=== PATIENT | male | born 1950 | race Caucasian/White ===

== ENCOUNTER 2020-11-22 01:24 | Inpatient (IN) ==
[2020-11-22] MEDS ORDERED: Albuterol 2.5 MG/3 ML NEBULIZER IH PRN (03:51)
[2020-11-22] MEDS ORDERED: methylPREDNISolone 125 MG/2 ML VIAL IVP ONE (03:51)
[2020-11-22] MEDS ORDERED: Perflutren Lipid Microsphere 1.3 ML in 0.9 % Sodium Chloride 8.7 ML IVP PRN (03:55)
[2020-11-22] MEDS: Azithromycin 250 MG TABLET PO SCH ×2 (04:10→09:39)
[2020-11-22] MEDS: Albuterol 2.5 MG/3 ML NEBULIZER IH SCH ×6 (04:11→23:32)
[2020-11-22] MEDS ORDERED: *HR* Dextrose 50 % in Water (Vial) 50 ML VIAL IVP PRN (04:40)
[2020-11-22] MEDS ORDERED: D5% in Water 1,000 ML IVC PRN (04:40)
[2020-11-22] MEDS ORDERED: Dextrose Gel 15 GM/37.5 ML TUBE PO PRN ×2 (04:40)
[2020-11-22 06:38] LABS: Prothrombin Time 12.1 Seconds (9.4-12.1)
[2020-11-22 06:59] LABS: Alanine Aminotransferase 12 Units/L (7-52); Albumin 3.6 g/dL (3.5-5.7); Albumin/Globulin Ratio 1.6 (1.1-2.2); Alkaline Phosphatase 78 Units/L (34-104); Aspartate Amino Transferase 13 Units/L (13-39); BUN/Creatinine Ratio 14 (6-26); Bilirubin,Total 0.6 mg/dL (0.3-1.0); Blood Urea Nitrogen 18 mg/dL (8-23); Calcium 8.6 mg/dL (8.6-10.3); Carbon Dioxide 24 mEq/L (23-29); Chloride 108 mEq/L (98-107); Chol/HDL Ratio 2.7 (0-4.9); Cholesterol 108 mg/dL (< 200); Globulin 2.2 g/dL (2.4-3.5); Glucose 109 mg/dL (70-105); HDL Cholesterol 40 mg/dL (40-59); LDL Cholesterol,Calculated 61 mg/dL (< 100); Osmolality,Calculated 288 (280-300); Potassium 4.7 mEq/L (3.5-5.1); Sodium 138 mEq/L (136-145); Total Protein 5.8 g/dL (6.4-8.9); Triglycerides 36 mg/dL (< 150); Troponin I 0.29 ng/mL (< 0.04); eGFR For African Americans > 60 (> 60); eGFR For Non-African Americans 56 (> 60)
[2020-11-22] MEDS ORDERED: Isovue-370 500 ML BOTTLE IVP ONE (07:05)
[2020-11-22 07:08] LABS: Bilirubin,Urine Negative (Negative); Blood,Urine Negative (Negative); Clarity,Urine Clear (Clear); Color,Urine Colorless (Yellow); Glucose,Urine (UA) Normal (Normal); Ketones,Urine Negative (Negative); Leukocyte Esterase,Urine Negative (Negative); Nitrite,Urine Negative (Negative); Protein,Urine Negative (Neg-Trace); Specific Gravity,Urine 1.008 (1.010-1.025); Urobilinogen,Urine Normal (Normal)
[2020-11-22] MEDS ORDERED: *HR* Heparin 5,000 UNIT/ML VIAL IVP PRN ×2 (07:08)
[2020-11-22] MEDS ORDERED: *HR* Heparin 5,000 UNIT/ML VIAL IVP ONE (07:08)
[2020-11-22] MEDS: Insulin LISPRO 300 UNITS/3 ML VIAL SUBQ SCH ×4 (07:52→20:34)
[2020-11-22 08:54] LABS: ABG Base Excess -1 mEq/L (-2 to 3); ABG HCO3 24 mEq/L (21-27); ABG Oxygen Saturation 98 % (95-98); ABG PCO2 38 mmHg (35-45); ABG PO2 98 mmHg (85-104); ABG TCO2 25 mEq/L (20-26)
[2020-11-22 09:10] LABS: Estimated Average Glucose 117 mg/dl; Hemoglobin A1C 5.7 %
[2020-11-22] MEDS: Aspirin 81 MG TAB.CHEW PO SCH (09:39)
[2020-11-22 10:21] LABS: Hematocrit 39.2 % (37.5-50.1); Hemoglobin 12.9 g/dL (12.9-16.9); Mean Corpuscular HGB Conc 32.9 g/dL (31.6-35.5); Mean Corpuscular Hemoglobin 31.4 pg (28.0-33.3); Mean Corpuscular Volume 95.4 fL (83.0-100.0); Mean Platelet Volume 10.2 fL (9.4-12.4); Platelet Count 229 K/mcL (140-400); Red Blood Count 4.11 M/mcL (4.19-5.50); Red Cell Distribution Width 11.6 % (11.5-14.5); White Blood Count 8.9 K/mcL (4.3-11.1)
[2020-11-22 10:27] LABS: Heparin anti-factor XA UFH 0.05 IU/mL (0.30-0.70)
[2020-11-22 10:28] LABS: Prothrombin Time 11.3 Seconds (9.4-12.1)
[2020-11-22] MEDS: Heparin 25,000UNIT/250ML 1/2NS 25,000 UNIT/250 ML IV.SOLN IVC SCH (11:04)
[2020-11-22] MEDS: 0.9 % Sodium Chloride 1,000 ML IVC SCH (14:21)
[2020-11-23] MEDS: 0.9 % Sodium Chloride 1,000 ML IVC SCH (00:06)
[2020-11-23 01:32] LABS: Basophils % 0.1 %; Eosinophils % 0.1 %; Hematocrit 34.7 % (37.5-50.1); Hemoglobin 11.5 g/dL (12.9-16.9); Immature Granulocytes % 0.6 % (0-4); Lymphocytes # 1.4 K/mcL (0.6-4.6); Lymphocytes % 9.2 %; Mean Corpuscular HGB Conc 33.1 g/dL (31.6-35.5); Mean Corpuscular Hemoglobin 31.6 pg (28.0-33.3); Mean Corpuscular Volume 95.3 fL (83.0-100.0); Mean Platelet Volume 10.4 fL (9.4-12.4); Monocytes # 1.2 K/mcL (0.0-1.3); Monocytes % 7.7 %; Neutrophils # 12.8 K/mcL (1.6-8.9); Platelet Count 192 K/mcL (140-400); Red Blood Count 3.64 M/mcL (4.19-5.50); Red Cell Distribution Width 11.5 % (11.5-14.5); Segmented Neutrophils % 82.3 %
[2020-11-23 01:34] LABS: White Blood Count 15.5 K/mcL (4.3-11.1)
[2020-11-23] MEDS: Albuterol 2.5 MG/3 ML NEBULIZER IH SCH ×6 (03:49→23:09)
[2020-11-23] MEDS: Insulin LISPRO 300 UNITS/3 ML VIAL SUBQ SCH ×4 (08:37→21:08)
[2020-11-23] MEDS: predniSONE 20 MG TABLET PO SCH (08:38)
[2020-11-23] MEDS: Azithromycin 250 MG TABLET PO SCH (08:38)
[2020-11-23] MEDS: Aspirin 81 MG TAB.CHEW PO SCH (08:38)
[2020-11-23] MEDS: Nicotine 21 MG PATCH.TD24 TD SCH (11:17)
[2020-11-23] MEDS: Heparin 25,000UNIT/250ML 1/2NS 25,000 UNIT/250 ML IV.SOLN IVC SCH (16:03)
[2020-11-23] MEDS: carvediloL 6.25 MG TABLET PO SCH (16:15)
[2020-11-23] MEDS: amLODIPine 5 MG TABLET PO SCH (16:15)
[2020-11-23] MEDS: Budesonide/Formoterol 160/4.5 1 PUFF INH IH SCH (19:48)
[2020-11-24 02:38] LABS: Basophils % 0.3 %; Eosinophils # 0.2 K/mcL (0.0-0.6); Eosinophils % 1.2 %; Hematocrit 37.2 % (37.5-50.1); Immature Granulocytes % 0.3 % (0-4); Lymphocytes # 3.2 K/mcL (0.6-4.6); Lymphocytes % 22.4 %; Mean Corpuscular HGB Conc 34.9 g/dL (31.6-35.5); Mean Corpuscular Hemoglobin 32.7 pg (28.0-33.3); Mean Corpuscular Volume 93.5 fL (83.0-100.0); Mean Platelet Volume 10.3 fL (9.4-12.4); Monocytes % 6.9 %; Neutrophils # 9.9 K/mcL (1.6-8.9); Platelet Count 229 K/mcL (140-400); Red Blood Count 3.98 M/mcL (4.19-5.50); Red Cell Distribution Width 11.6 % (11.5-14.5); Segmented Neutrophils % 68.9 %; White Blood Count 14.4 K/mcL (4.3-11.1)
[2020-11-24 02:57] LABS: BUN/Creatinine Ratio 19 (6-26); Blood Urea Nitrogen 26 mg/dL (8-23); Carbon Dioxide 26 mEq/L (23-29); Chloride 106 mEq/L (98-107); Glucose 101 mg/dL (70-105); Magnesium 1.5 mg/dL (1.6-2.6); Osmolality,Calculated 291 (280-300); Phosphorous 2.3 mg/dL (2.7-4.5); Potassium 3.7 mEq/L (3.5-5.1); Sodium 138 mEq/L (136-145); eGFR For African Americans > 60 (> 60); eGFR For Non-African Americans 52 (> 60)
[2020-11-24] MEDS: Albuterol 2.5 MG/3 ML NEBULIZER IH SCH ×6 (03:52→23:16)
[2020-11-24] MEDS: Acetaminophen 325 MG TABLET PO PRN (06:04)
[2020-11-24] MEDS: Budesonide/Formoterol 160/4.5 1 PUFF INH IH SCH ×2 (07:29→20:08)
[2020-11-24] MEDS: Insulin LISPRO 300 UNITS/3 ML VIAL SUBQ SCH ×4 (08:14→20:03)
[2020-11-24] MEDS: amLODIPine 5 MG TABLET PO SCH (08:26)
[2020-11-24] MEDS: Azithromycin 250 MG TABLET PO SCH (08:27)
[2020-11-24] MEDS: Nicotine 21 MG PATCH.TD24 TD SCH (08:27)
[2020-11-24] MEDS: predniSONE 20 MG TABLET PO SCH (08:28)
[2020-11-24] MEDS: carvediloL 6.25 MG TABLET PO SCH ×2 (08:28→17:19)
[2020-11-24] MEDS: Aspirin 81 MG TAB.CHEW PO SCH (08:28)
[2020-11-24] MEDS: Heparin 25,000UNIT/250ML 1/2NS 25,000 UNIT/250 ML IV.SOLN IVC SCH ×2 (08:36→20:28)
[2020-11-25] MEDS: Albuterol 2.5 MG/3 ML NEBULIZER IH SCH ×6 (03:21→23:03)
[2020-11-25 03:49] LABS: Basophils % 0.3 %; Eosinophils # 0.1 K/mcL (0.0-0.6); Eosinophils % 0.4 %; Hemoglobin 13.1 g/dL (12.9-16.9); Immature Granulocytes % 0.4 % (0-4); Lymphocytes # 2.9 K/mcL (0.6-4.6); Lymphocytes % 18.3 %; Mean Corpuscular HGB Conc 35.4 g/dL (31.6-35.5); Mean Corpuscular Hemoglobin 32.3 pg (28.0-33.3); Mean Corpuscular Volume 91.4 fL (83.0-100.0); Mean Platelet Volume 10.7 fL (9.4-12.4); Monocytes # 0.9 K/mcL (0.0-1.3); Monocytes % 5.8 %; Neutrophils # 11.8 K/mcL (1.6-8.9); Platelet Count 246 K/mcL (140-400); Red Blood Count 4.05 M/mcL (4.19-5.50); Red Cell Distribution Width 11.4 % (11.5-14.5); Segmented Neutrophils % 74.8 %; White Blood Count 15.7 K/mcL (4.3-11.1)
[2020-11-25 03:59] LABS: BUN/Creatinine Ratio 15 (6-26); Blood Urea Nitrogen 20 mg/dL (8-23); Carbon Dioxide 25 mEq/L (23-29); Chloride 108 mEq/L (98-107); Glucose 108 mg/dL (70-105); Magnesium 1.6 mg/dL (1.6-2.6); Osmolality,Calculated 289 (280-300); Potassium 3.7 mEq/L (3.5-5.1); Sodium 138 mEq/L (136-145); eGFR For African Americans > 60 (> 60); eGFR For Non-African Americans 52 (> 60)
[2020-11-25] MEDS: Budesonide/Formoterol 160/4.5 1 PUFF INH IH SCH ×2 (07:14→19:36)
[2020-11-25] MEDS: Insulin LISPRO 300 UNITS/3 ML VIAL SUBQ SCH ×4 (07:15→21:49)
[2020-11-25] MEDS: Nicotine 21 MG PATCH.TD24 TD SCH (08:45)
[2020-11-25] MEDS: carvediloL 6.25 MG TABLET PO SCH ×2 (08:45→17:45)
[2020-11-25] MEDS: Aspirin 81 MG TAB.CHEW PO SCH (08:46)
[2020-11-25] MEDS: amLODIPine 5 MG TABLET PO SCH (08:46)
[2020-11-25] MEDS: predniSONE 20 MG TABLET PO SCH (08:46)
[2020-11-25] MEDS: Azithromycin 250 MG TABLET PO SCH (08:46)
[2020-11-25] MEDS: lisinopriL 20 MG TABLET PO SCH (08:46)
[2020-11-25] MEDS: Acetaminophen 325 MG TABLET PO PRN (08:50)
[2020-11-25] MEDS ORDERED: 0.9 % Sodium Chloride 1,000 ML IVC SCH (10:15)
[2020-11-25] MEDS ORDERED: E-Z-HD (BARIUM SULF) SUSPENSION PO ONE (14:39)
[2020-11-25] MEDS ORDERED: E-Z-PAQUE (BARIUM SULF) SUSP 1 BOTTLE PO ONE (14:39)
[2020-11-25] MEDS ORDERED: Barium Sulfate 1 TAB TABLET PO ONE (14:40)
[2020-11-26] MEDS: Heparin 25,000UNIT/250ML 1/2NS 25,000 UNIT/250 ML IV.SOLN IVC SCH ×2 (00:16→17:24)
[2020-11-26] MEDS: Acetaminophen 325 MG TABLET PO PRN (02:20)
[2020-11-26 03:41] LABS: Basophils # 0.1 K/mcL (0.0-0.2); Basophils % 0.3 %; Eosinophils # 0.1 K/mcL (0.0-0.6); Eosinophils % 0.5 %; Hematocrit 36.4 % (37.5-50.1); Hemoglobin 12.3 g/dL (12.9-16.9); Immature Granulocytes % 0.4 % (0-4); Lymphocytes # 3.1 K/mcL (0.6-4.6); Lymphocytes % 20.9 %; Mean Corpuscular HGB Conc 33.8 g/dL (31.6-35.5); Mean Corpuscular Hemoglobin 31.5 pg (28.0-33.3); Mean Corpuscular Volume 93.1 fL (83.0-100.0); Mean Platelet Volume 10.8 fL (9.4-12.4); Monocytes # 0.9 K/mcL (0.0-1.3); Monocytes % 6.3 %; Neutrophils # 10.5 K/mcL (1.6-8.9); Platelet Count 231 K/mcL (140-400); Red Blood Count 3.91 M/mcL (4.19-5.50); Red Cell Distribution Width 11.5 % (11.5-14.5); Segmented Neutrophils % 71.6 %; White Blood Count 14.7 K/mcL (4.3-11.1)
[2020-11-26 04:03] LABS: BUN/Creatinine Ratio 16 (6-26); Blood Urea Nitrogen 22 mg/dL (8-23); Carbon Dioxide 23 mEq/L (23-29); Chloride 107 mEq/L (98-107); Glucose 93 mg/dL (70-105); Magnesium 1.5 mg/dL (1.6-2.6); Osmolality,Calculated 289 (280-300); Phosphorous 3.5 mg/dL (2.7-4.5); Potassium 3.8 mEq/L (3.5-5.1); Sodium 138 mEq/L (136-145); eGFR For African Americans > 60 (> 60); eGFR For Non-African Americans 51 (> 60)
[2020-11-26] MEDS: Albuterol 2.5 MG/3 ML NEBULIZER IH SCH ×5 (04:22→20:19)
[2020-11-26] MEDS: Budesonide/Formoterol 160/4.5 1 PUFF INH IH SCH ×2 (07:11→20:19)
[2020-11-26] MEDS: amLODIPine 5 MG TABLET PO SCH (08:38)
[2020-11-26] MEDS: lisinopriL 20 MG TABLET PO SCH (08:38)
[2020-11-26] MEDS: Azithromycin 250 MG TABLET PO SCH (08:38)
[2020-11-26] MEDS: predniSONE 20 MG TABLET PO SCH (08:38)
[2020-11-26] MEDS: carvediloL 6.25 MG TABLET PO SCH ×2 (08:39→17:23)
[2020-11-26] MEDS: Nicotine 21 MG PATCH.TD24 TD SCH (08:39)
[2020-11-26] MEDS: Aspirin 81 MG TAB.CHEW PO SCH (08:39)
[2020-11-26] MEDS: Insulin LISPRO 300 UNITS/3 ML VIAL SUBQ SCH ×4 (08:41→19:56)
[2020-11-26] MEDS ORDERED: 0.9 % Sodium Chloride 1,000 ML IVC SCH (11:00)
[2020-11-26] MEDS ORDERED: Nitroglycerin 1,000 MCG/5 ML VIAL IV ONE (14:14)
[2020-11-26] MEDS ORDERED: *HR* Heparin 10,000 UNIT/10 ML VIAL ONE (14:14)
[2020-11-26] MEDS ORDERED: 0.9 % Sodium Chloride 2,000 ML ONE (14:14)
[2020-11-26] MEDS ORDERED: ISOVUE-370 200 ML INFUS..BTL ONE (14:14)
[2020-11-26] MEDS ORDERED: Heparin 1,000 UNITS/500 mL 500 ML ONE (14:14)
[2020-11-26] MEDS ORDERED: *HR* FentaNYL (PF) 100 MCG/2 ML VIAL ONE (14:27)
[2020-11-26] MEDS ORDERED: *HR* Midazolam HCl 2 MG/2 ML VIAL ONE (14:27)
[2020-11-26] MEDS ORDERED: *HR* Heparin 5,000 UNIT/ML VIAL IVP PRN ×2 (16:56)
[2020-11-27] MEDS: Albuterol 2.5 MG/3 ML NEBULIZER IH SCH ×7 (00:13→23:55)
[2020-11-27 00:48] LABS: Basophils % 0.3 %; Eosinophils # 0.1 K/mcL (0.0-0.6); Eosinophils % 0.4 %; Hemoglobin 13.2 g/dL (12.9-16.9); Immature Granulocytes % 0.4 % (0-4); Lymphocytes # 2.3 K/mcL (0.6-4.6); Lymphocytes % 15.3 %; Mean Corpuscular HGB Conc 34.7 g/dL (31.6-35.5); Mean Corpuscular Hemoglobin 32.4 pg (28.0-33.3); Mean Corpuscular Volume 93.4 fL (83.0-100.0); Mean Platelet Volume 10.7 fL (9.4-12.4); Monocytes % 6.7 %; Neutrophils # 11.8 K/mcL (1.6-8.9); Platelet Count 251 K/mcL (140-400); Red Blood Count 4.07 M/mcL (4.19-5.50); Red Cell Distribution Width 11.7 % (11.5-14.5); Segmented Neutrophils % 76.9 %; White Blood Count 15.3 K/mcL (4.3-11.1)
[2020-11-27 01:06] LABS: Calcium 9.1 mg/dL (8.6-10.3); Magnesium 1.9 mg/dL (1.6-2.6); Phosphorous 3.4 mg/dL (2.7-4.5); Potassium 4.4 mEq/L (3.5-5.1)
[2020-11-27] MEDS: Budesonide/Formoterol 160/4.5 1 PUFF INH IH SCH ×2 (07:06→19:40)
[2020-11-27] MEDS: Azithromycin 250 MG TABLET PO SCH (09:12)
[2020-11-27] MEDS: carvediloL 6.25 MG TABLET PO SCH ×2 (09:15→16:14)
[2020-11-27] MEDS: amLODIPine 5 MG TABLET PO SCH (09:15)
[2020-11-27] MEDS: predniSONE 20 MG TABLET PO SCH (09:15)
[2020-11-27] MEDS: Nicotine 21 MG PATCH.TD24 TD SCH (09:16)
[2020-11-27] MEDS: 0.9 % Sodium Chloride 1,000 ML IVC SCH ×2 (09:17→22:29)
[2020-11-27] MEDS: Aspirin 81 MG TAB.CHEW PO SCH (09:39)
[2020-11-27] MEDS: Insulin LISPRO 300 UNITS/3 ML VIAL SUBQ SCH ×4 (09:40→20:07)
[2020-11-27] MEDS ORDERED: carvediloL 6.25 MG TABLET PO ONE (10:37)
[2020-11-27] MEDS: Acetaminophen 325 MG TABLET PO PRN (13:59)
[2020-11-27] MEDS: Heparin 25,000UNIT/250ML 1/2NS 25,000 UNIT/250 ML IV.SOLN IVC SCH (21:45)
[2020-11-28 01:14] LABS: Basophils % 0.2 %; Eosinophils % 0.1 %; Hematocrit 36.8 % (37.5-50.1); Hemoglobin 12.3 g/dL (12.9-16.9); Immature Granulocytes % 0.5 % (0-4); Lymphocytes # 2.2 K/mcL (0.6-4.6); Lymphocytes % 13.1 %; Mean Corpuscular HGB Conc 33.4 g/dL (31.6-35.5); Mean Corpuscular Hemoglobin 31.5 pg (28.0-33.3); Mean Corpuscular Volume 94.4 fL (83.0-100.0); Mean Platelet Volume 11.2 fL (9.4-12.4); Monocytes % 6.1 %; Neutrophils # 13.6 K/mcL (1.6-8.9); Platelet Count 238 K/mcL (140-400); Red Cell Distribution Width 11.7 % (11.5-14.5)
[2020-11-28 01:32] LABS: BUN/Creatinine Ratio 16 (6-26); Blood Urea Nitrogen 22 mg/dL (8-23); Calcium 8.5 mg/dL (8.6-10.3); Carbon Dioxide 20 mEq/L (23-29); Chloride 107 mEq/L (98-107); Glucose 140 mg/dL (70-105); Magnesium 1.5 mg/dL (1.6-2.6); Osmolality,Calculated 286 (280-300); Phosphorous 2.9 mg/dL (2.7-4.5); Potassium 4.2 mEq/L (3.5-5.1); Sodium 135 mEq/L (136-145); eGFR For African Americans > 60 (> 60); eGFR For Non-African Americans 50 (> 60)
[2020-11-28] MEDS: Albuterol 2.5 MG/3 ML NEBULIZER IH SCH ×5 (04:10→20:24)
[2020-11-28] MEDS: Insulin LISPRO 300 UNITS/3 ML VIAL SUBQ SCH ×4 (07:06→21:19)
[2020-11-28] MEDS: Aspirin 81 MG TAB.CHEW PO SCH (07:07)
[2020-11-28] MEDS: Budesonide/Formoterol 160/4.5 1 PUFF INH IH SCH ×3 (07:17→21:53)
[2020-11-28] MEDS: Nicotine 21 MG PATCH.TD24 TD SCH (07:37)
[2020-11-28] MEDS: amLODIPine 5 MG TABLET PO SCH (07:37)
[2020-11-28] MEDS: carvediloL 6.25 MG TABLET PO SCH (07:37)
[2020-11-28] MEDS ORDERED: Lidocaine -MPF 2% 2 ML VIAL ONE ×3 (11:46→15:02)
[2020-11-28] MEDS ORDERED: Heparin 1,000 UNITS/500 mL 500 ML ONE (11:46)
[2020-11-28] MEDS ORDERED: *HR* Rocuronium Bromide 50 MG/5 ML VIAL ONE ×2 (12:14→14:18)
[2020-11-28] MEDS ORDERED: *HR* Succinylcholine 200 MG/10 ML VIAL IVP ONE (12:14)
[2020-11-28] MEDS ORDERED: Ondansetron 4 MG/2 ML VIAL ONE (12:14)
[2020-11-28] MEDS ORDERED: Lidocaine HCL 4 ML Topical Solution (Laryng-O-Jet Kit Sterile Pak) TP ONE (12:14)
[2020-11-28] MEDS ORDERED: *HR* FentaNYL (PF) 100 MCG/2 ML VIAL ONE (12:15)
[2020-11-28] MEDS ORDERED: *HR* Propofol 200 MG/20 ML VIAL IVP ONE (12:15)
[2020-11-28] MEDS ORDERED: *HR* Labetalol 20 MG/4 ML SYRINGE IVP ONE (12:59)
[2020-11-28] MEDS ORDERED: Heparin 1,000 UNITS/500 mL 0 ML ONE (13:10)
[2020-11-28] MEDS ORDERED: Protamine Sulfate 50 MG/5 ML VIAL IVP ONE (13:10)
[2020-11-28] MEDS ORDERED: Lidocaine 1% 20 ML MDV ONE (13:10)
[2020-11-28] MEDS ORDERED: Bupivacaine-MPF 0.25% 10 ML VIAL ONE (13:10)
[2020-11-28] MEDS ORDERED: *HR* Heparin 5,000 UNIT/ML VIAL ONE (13:12)
[2020-11-28] MEDS ORDERED: Vancomycin 1,000 MG, Sodium Chloride IRRigation 1,000 ML IR ONE (13:30)
[2020-11-28] MEDS ORDERED: Vancomycin 1,000 MG, Sodium Chloride IRRIG Soln 3,000 ML IR ONE (13:30)
[2020-11-28] MEDS ORDERED: EPINEPHrine 1 MG/ML VIAL ONE (13:52)
[2020-11-28] MEDS ORDERED: Vancomycin 1,000 MG VIAL ONE (14:13)
[2020-11-28] MEDS ORDERED: *HR* HYDROMORPHONE 2 MG/ML VIAL ONE (15:02)
[2020-11-28] MEDS ORDERED: Ipratropium/Albuterol Neb 3 ML IH ONE (17:33)
[2020-11-28] MEDS ORDERED: Acetaminophen IV 1,000 MG/100 ML BAG IVPB ONE ×2 (17:35→17:37)
[2020-11-28] MEDS ORDERED: *HR* Atropine Sulfate 1 MG/10 ML SYRINGE ONE (19:03)
[2020-11-28] MEDS ORDERED: Glycopyrrolate 0.2 MG/ML VIAL IVP ONE (19:07)
[2020-11-28] MEDS ORDERED: Glycopyrrolate 0.2 MG/ML VIAL ONE (19:07)
[2020-11-28] MEDS ORDERED: Nicotine 21 MG PATCH.TD24 TD STA (19:16)
[2020-11-28] MEDS ORDERED: Naloxone 0.4 MG/ML INJ IVP PRN (20:44)
[2020-11-28] MEDS ORDERED: Dextrose Gel 15 GM/37.5 ML TUBE PO PRN ×2 (20:44)
[2020-11-28] MEDS ORDERED: Albuterol 2.5 MG/3 ML NEBULIZER IH PRN (20:44)
[2020-11-28] MEDS ORDERED: *HR* Labetalol 20 MG/4 ML SYRINGE IVP PRN (20:44)
[2020-11-28] MEDS ORDERED: *HR* OxyCODONE Immed Rel 5 MG TABLET PO PRN (20:44)
[2020-11-28] MEDS ORDERED: Ondansetron 4 MG/2 ML VIAL IVP PRN (20:44)
[2020-11-28] MEDS ORDERED: *HR* Dextrose 50 % in Water (Vial) 50 ML VIAL IVP PRN (20:44)
[2020-11-28] MEDS ORDERED: D5% in Water 1,000 ML IVC PRN (20:44)
[2020-11-28] MEDS ORDERED: 0.9 % Sodium Chloride 1,000 ML IVC SCH ×2 (20:44)
[2020-11-28] MEDS: CeFAZolin 2 GM/120 ML BAG IVPB SCH (21:48)
[2020-11-29] MEDS: Albuterol 2.5 MG/3 ML NEBULIZER IH SCH ×6 (00:04→19:59)
[2020-11-29] MEDS: Acetaminophen 325 MG TABLET PO PRN ×2 (00:46→10:48)
[2020-11-29 00:54] LABS: Basophils % 0.1 %; Hematocrit 33.3 % (37.5-50.1); Hemoglobin 11.3 g/dL (12.9-16.9); Immature Granulocytes % 0.4 % (0-4); Mean Corpuscular HGB Conc 33.9 g/dL (31.6-35.5); Mean Corpuscular Hemoglobin 32.6 pg (28.0-33.3); Mean Platelet Volume 11.2 fL (9.4-12.4); Monocytes # 0.6 K/mcL (0.0-1.3); Neutrophils # 12.3 K/mcL (1.6-8.9); Platelet Count 184 K/mcL (140-400); Red Blood Count 3.47 M/mcL (4.19-5.50); Red Cell Distribution Width 11.9 % (11.5-14.5); Segmented Neutrophils % 88.5 %; White Blood Count 13.9 K/mcL (4.3-11.1)
[2020-11-29 01:09] LABS: Calcium 8.3 mg/dL (8.6-10.3); Magnesium 1.7 mg/dL (1.6-2.6); Potassium 4.6 mEq/L (3.5-5.1)
[2020-11-29] MEDS: CeFAZolin 2 GM/120 ML BAG IVPB SCH (06:25)
[2020-11-29] MEDS: *HR* Heparin 5,000 UNIT/ML VIAL SQ SCH ×2 (06:26→16:21)
[2020-11-29] MEDS: Budesonide/Formoterol 160/4.5 1 PUFF INH IH SCH ×2 (07:39→20:01)
[2020-11-29] MEDS: *HR* Metoprolol 5 MG/5 ML VIAL IVP SCH ×3 (07:42→16:21)
[2020-11-29] MEDS: Insulin LISPRO 300 UNITS/3 ML VIAL SUBQ SCH ×4 (07:43→19:36)
[2020-11-29] MEDS: Aspirin 81 MG TAB.CHEW PO SCH (07:46)
[2020-11-29] MEDS: Nicotine 21 MG PATCH.TD24 TD SCH (07:46)
[2020-11-29] MEDS ORDERED: amLODIPine 5 MG TABLET PO SCH (09:00)
[2020-11-29] MEDS ORDERED: lisinopriL 20 MG TABLET PO SCH (09:00)
[2020-11-29] MEDS ORDERED: 0.9 % Sodium Chloride 1,000 ML IVC ONE (10:37)
[2020-11-29] MEDS ORDERED: 0.9 % Sodium Chloride 1,000 ML IVC SCH (12:00)
[2020-11-29] MEDS ORDERED: 0.9 % Sodium Chloride 500 ML IVC ONE ×2 (12:03→13:35)
[2020-11-29 13:21] LABS: Hematocrit 31.8 % (37.5-50.1); Hemoglobin 10.5 g/dL (12.9-16.9)
[2020-11-29] MEDS: 0.9 % Sodium Chloride 1,000 ML IVC SCH ×2 (14:15→19:46)
[2020-11-29] MEDS ORDERED: carvediloL 6.25 MG TABLET PO SCH (17:00)
[2020-11-30] MEDS: *HR* Metoprolol 5 MG/5 ML VIAL IVP SCH ×4 (00:09→17:28)
[2020-11-30] MEDS: Albuterol 2.5 MG/3 ML NEBULIZER IH SCH ×7 (00:14→23:15)
[2020-11-30] MEDS: Acetaminophen 325 MG TABLET PO PRN ×2 (02:09→13:16)
[2020-11-30] MEDS: 0.9 % Sodium Chloride 1,000 ML IVC SCH (04:08)
[2020-11-30] MEDS: *HR* Heparin 5,000 UNIT/ML VIAL SQ SCH ×2 (06:14→18:16)
[2020-11-30] MEDS: Insulin LISPRO 300 UNITS/3 ML VIAL SUBQ SCH ×4 (07:38→21:45)
[2020-11-30] MEDS: Nicotine 21 MG PATCH.TD24 TD SCH (08:06)
[2020-11-30] MEDS: Aspirin 81 MG TAB.CHEW PO SCH ×2 (08:07→10:43)
[2020-11-30] MEDS: Budesonide/Formoterol 160/4.5 1 PUFF INH IH SCH ×2 (08:37→19:37)
[2020-11-30 09:42] LABS: Basophils % 0.2 %; Eosinophils # 0.1 K/mcL (0.0-0.6); Eosinophils % 0.9 %; Hematocrit 31.2 % (37.5-50.1); Hemoglobin 10.3 g/dL (12.9-16.9); Immature Granulocytes % 0.4 % (0-4); Lymphocytes # 2.2 K/mcL (0.6-4.6); Lymphocytes % 19.1 %; Mean Corpuscular Hemoglobin 31.9 pg (28.0-33.3); Mean Corpuscular Volume 96.6 fL (83.0-100.0); Mean Platelet Volume 11.3 fL (9.4-12.4); Monocytes # 0.8 K/mcL (0.0-1.3); Monocytes % 6.9 %; Neutrophils # 8.2 K/mcL (1.6-8.9); Platelet Count 161 K/mcL (140-400); Red Blood Count 3.23 M/mcL (4.19-5.50); Red Cell Distribution Width 12.2 % (11.5-14.5); Segmented Neutrophils % 72.5 %; White Blood Count 11.4 K/mcL (4.3-11.1)
[2020-11-30 09:57] LABS: Magnesium 1.4 mg/dL (1.6-2.6); Phosphorous 3.1 mg/dL (2.7-4.5); Potassium 3.7 mEq/L (3.5-5.1)
[2020-12-01] MEDS: *HR* Metoprolol 5 MG/5 ML VIAL IVP SCH ×4 (03:28→19:17)
[2020-12-01] MEDS: Albuterol 2.5 MG/3 ML NEBULIZER IH SCH ×6 (04:03→23:42)
[2020-12-01 05:45] LABS: Basophils % 0.2 %; Eosinophils # 0.3 K/mcL (0.0-0.6); Eosinophils % 2.9 %; Hematocrit 30.7 % (37.5-50.1); Hemoglobin 10.4 g/dL (12.9-16.9); Immature Granulocytes % 0.3 % (0-4); Lymphocytes # 1.9 K/mcL (0.6-4.6); Lymphocytes % 19.4 %; Mean Corpuscular HGB Conc 33.9 g/dL (31.6-35.5); Mean Corpuscular Hemoglobin 32.3 pg (28.0-33.3); Mean Corpuscular Volume 95.3 fL (83.0-100.0); Mean Platelet Volume 11.9 fL (9.4-12.4); Monocytes # 0.8 K/mcL (0.0-1.3); Neutrophils # 6.9 K/mcL (1.6-8.9); Platelet Count 169 K/mcL (140-400); Red Blood Count 3.22 M/mcL (4.19-5.50); Red Cell Distribution Width 12.3 % (11.5-14.5); Segmented Neutrophils % 69.2 %
[2020-12-01] MEDS: *HR* Heparin 5,000 UNIT/ML VIAL SQ SCH ×2 (06:16→17:24)
[2020-12-01 06:25] LABS: BUN/Creatinine Ratio 14 (6-26); Blood Urea Nitrogen 17 mg/dL (8-23); Calcium 8.3 mg/dL (8.6-10.3); Carbon Dioxide 22 mEq/L (23-29); Chloride 112 mEq/L (98-107); Glucose 105 mg/dL (70-105); Magnesium 1.3 mg/dL (1.6-2.6); Osmolality,Calculated 292 (280-300); Phosphorous 3.1 mg/dL (2.7-4.5); Potassium 3.6 mEq/L (3.5-5.1); Sodium 140 mEq/L (136-145); eGFR For African Americans > 60 (> 60); eGFR For Non-African Americans 57 (> 60)
[2020-12-01] MEDS: Budesonide/Formoterol 160/4.5 1 PUFF INH IH SCH ×2 (07:47→20:27)
[2020-12-01] MEDS: Nicotine 21 MG PATCH.TD24 TD SCH (08:45)
[2020-12-01] MEDS: Aspirin 81 MG TAB.CHEW PO SCH (10:25)
[2020-12-01] MEDS: Insulin LISPRO 300 UNITS/3 ML VIAL SUBQ SCH ×4 (10:26→20:42)
[2020-12-01] MEDS: carvediloL 6.25 MG TABLET PO SCH ×2 (10:26→17:24)
[2020-12-01] MEDS: *HR* HYDROcodone/Acet 5/325 mg TABLET PO PRN (15:31)
[2020-12-02] MEDS: *HR* Metoprolol 5 MG/5 ML VIAL IVP SCH ×4 (00:49→16:36)
[2020-12-02] MEDS: Albuterol 2.5 MG/3 ML NEBULIZER IH SCH ×6 (03:53→23:55)
[2020-12-02 05:10] LABS: Basophils % 0.3 %; Eosinophils # 0.4 K/mcL (0.0-0.6); Eosinophils % 3.4 %; Hematocrit 32.2 % (37.5-50.1); Hemoglobin 10.6 g/dL (12.9-16.9); Immature Granulocytes % 0.4 % (0-4); Lymphocytes # 2.1 K/mcL (0.6-4.6); Lymphocytes % 18.2 %; Mean Corpuscular HGB Conc 32.9 g/dL (31.6-35.5); Mean Corpuscular Hemoglobin 31.7 pg (28.0-33.3); Mean Corpuscular Volume 96.4 fL (83.0-100.0); Mean Platelet Volume 11.9 fL (9.4-12.4); Monocytes # 1.1 K/mcL (0.0-1.3); Platelet Count 167 K/mcL (140-400); Red Blood Count 3.34 M/mcL (4.19-5.50); Segmented Neutrophils % 68.7 %; White Blood Count 11.6 K/mcL (4.3-11.1)
[2020-12-02 05:26] LABS: BUN/Creatinine Ratio 10 (6-26); Blood Urea Nitrogen 12 mg/dL (8-23); Calcium 8.5 mg/dL (8.6-10.3); Carbon Dioxide 25 mEq/L (23-29); Chloride 108 mEq/L (98-107); Glucose 96 mg/dL (70-105); Magnesium 1.2 mg/dL (1.6-2.6); Osmolality,Calculated 290 (280-300); Phosphorous 2.4 mg/dL (2.7-4.5); Potassium 3.6 mEq/L (3.5-5.1); Sodium 140 mEq/L (136-145); eGFR For African Americans > 60 (> 60); eGFR For Non-African Americans > 60 (> 60)
[2020-12-02] MEDS: *HR* Heparin 5,000 UNIT/ML VIAL SQ SCH ×2 (06:41→16:35)
[2020-12-02] MEDS: Aspirin 81 MG TAB.CHEW PO SCH (07:46)
[2020-12-02] MEDS: Budesonide/Formoterol 160/4.5 1 PUFF INH IH SCH ×2 (07:50→20:17)
[2020-12-02] MEDS: carvediloL 6.25 MG TABLET PO SCH ×2 (07:54→16:36)
[2020-12-02] MEDS: Nicotine 21 MG PATCH.TD24 TD SCH (07:54)
[2020-12-02] MEDS: Insulin LISPRO 300 UNITS/3 ML VIAL SUBQ SCH ×4 (07:59→22:31)
[2020-12-03] MEDS: *HR* Metoprolol 5 MG/5 ML VIAL IVP SCH ×3 (00:13→12:18)
[2020-12-03] MEDS: Albuterol 2.5 MG/3 ML NEBULIZER IH SCH ×4 (04:15→16:05)
[2020-12-03 05:00] LABS: Basophils # 0.1 K/mcL (0.0-0.2); Basophils % 0.4 %; Eosinophils # 0.4 K/mcL (0.0-0.6); Eosinophils % 2.8 %; Hematocrit 31.8 % (37.5-50.1); Hemoglobin 11.1 g/dL (12.9-16.9); Immature Granulocytes % 0.4 % (0-4); Lymphocytes % 15.1 %; Mean Corpuscular HGB Conc 34.9 g/dL (31.6-35.5); Mean Corpuscular Hemoglobin 32.3 pg (28.0-33.3); Mean Corpuscular Volume 92.4 fL (83.0-100.0); Mean Platelet Volume 11.4 fL (9.4-12.4); Monocytes # 1.2 K/mcL (0.0-1.3); Monocytes % 9.1 %; Neutrophils # 9.5 K/mcL (1.6-8.9); Platelet Count 188 K/mcL (140-400); Red Blood Count 3.44 M/mcL (4.19-5.50); Red Cell Distribution Width 11.8 % (11.5-14.5); Segmented Neutrophils % 72.2 %; White Blood Count 13.2 K/mcL (4.3-11.1)
[2020-12-03 05:43] LABS: BUN/Creatinine Ratio 15 (6-26); Blood Urea Nitrogen 16 mg/dL (8-23); Calcium 8.7 mg/dL (8.6-10.3); Carbon Dioxide 26 mEq/L (23-29); Chloride 104 mEq/L (98-107); Glucose 103 mg/dL (70-105); Magnesium 1.3 mg/dL (1.6-2.6); Osmolality,Calculated 287 (280-300); Phosphorous 2.3 mg/dL (2.7-4.5); Sodium 138 mEq/L (136-145); eGFR For African Americans > 60 (> 60); eGFR For Non-African Americans > 60 (> 60)
[2020-12-03] MEDS: *HR* Heparin 5,000 UNIT/ML VIAL SQ SCH (05:52)
[2020-12-03] MEDS: *HR* HYDROcodone/Acet 5/325 mg TABLET PO PRN (05:54)
[2020-12-03] MEDS: Budesonide/Formoterol 160/4.5 1 PUFF INH IH SCH (07:44)
[2020-12-03] MEDS: Insulin LISPRO 300 UNITS/3 ML VIAL SUBQ SCH ×2 (08:53→12:18)
[2020-12-03] MEDS: carvediloL 6.25 MG TABLET PO SCH (08:56)
[2020-12-03] MEDS: Nicotine 21 MG PATCH.TD24 TD SCH (08:56)
[2020-12-03] MEDS: Aspirin 81 MG TAB.CHEW PO SCH (08:56)
[2020-12-03 11:29] LABS: ABG PH 7.36 pH Units (7.32-7.45)
[2020-12-03 11:30] LABS: ABG Base Excess -1 mEq/L (-2 to 3); ABG HCO3 24 mEq/L (21-27); ABG PCO2 43 mmHg (35-45); ABG PO2 87 mmHg (85-104); ABG TCO2 26 mEq/L (20-26)
[2020-12-03 11:31] LABS: ABG Oxygen Saturation 96 % (95-98)
[2020-12-03 16:40] LABS: Adenovirus Not Detected (Not Detect); Bordetella Pertussis Not Detected (Not Detect); Chlamydophila pneumoniae Not Detected (Not Detect); Coronavirus 229E Not Detected (Not Detect); Coronavirus HKU1 Not Detected (Not Detect); Coronavirus NL63 Not Detected (Not Detect); Coronavirus OC43 Not Detected (Not Detect); Human Metapneumovirus Not Detected (Not Detect); Human Rhinovirus/Enterovirus Not Detected (Not Detect); Influenza A Subtype 2009 H1 Not Detected (Not Detect); Influenza B Not Detected (Not Detect); Mycoplasma pneumoniae Not Detected (Not Detect); Parainfluenza Virus 1 Not Detected (Not Detect); Parainfluenza Virus 2 Not Detected (Not Detect); Parainfluenza Virus 3 Not Detected (Not Detect); Parainfluenza Virus 4 Not Detected (Not Detect); Respiratory Syncytial Virus Not Detected (Not Detect); SARS-CoV-2 Not Detected (Not Detect)
[2020-12-03 18:58] VITALS: BP 114/45
== END 2020-12-03 16:46 | disposition other institution (70) | DRG 37 ==
LOC: 2NNU → SUATTDRO 02:05 → 3BNU 11:41 → SUATTDRO 11-23 19:24 → 2NNU 11-28 14:44
PROVIDERS: ADMIT Family Medicine; ATTEND Internal Medicine

== ENCOUNTER 2021-04-28 06:44 | Inpatient (IN) ==
[2021-04-28] MEDS ORDERED: *HR* Labetalol 20 MG/4 ML SYRINGE IVP PRN (10:02)
[2021-04-28] MEDS ORDERED: Perflutren Lipid Microsphere 1.3 ML in 0.9 % Sodium Chloride 8.7 ML IVP PRN ×2 (10:08→10:17)
[2021-04-28] MEDS ORDERED: Isovue-370 500 ML BOTTLE IVP ONE (10:09)
[2021-04-28] MEDS ORDERED: Ondansetron 4 MG/2 ML VIAL IVP PRN (10:10)
[2021-04-28] MEDS ORDERED: Naloxone 0.4 MG/ML INJ IVP PRN ×2 (10:10→21:31)
[2021-04-28] MEDS ORDERED: *HR* Heparin 5,000 UNIT/ML VIAL IVP ONE (10:21)
[2021-04-28] MEDS ORDERED: *HR* Heparin 5,000 UNIT/ML VIAL IVP PRN ×2 (10:21)
[2021-04-28] MEDS: Ipratropium/Albuterol Neb 3 ML IH SCH ×4 (11:28→19:48)
[2021-04-28] MEDS: Budesonide/Formoterol 160/4.5 1 PUFF INH IH SCH ×2 (11:28→19:48)
[2021-04-28] MEDS: Heparin 25,000UNIT/250ML 1/2NS 25,000 UNIT/250 ML IV.SOLN IVC SCH (11:34)
[2021-04-28 14:41] LABS: Basophils # 0.1 K/mcL (0.0-0.2); Basophils % 0.7 %; Eosinophils # 0.3 K/mcL (0.0-0.6); Eosinophils % 2.8 %; Hematocrit 42.5 % (37.5-50.1); Hemoglobin 14.4 g/dL (12.9-16.9); Immature Granulocytes % 0.3 % (0-4); Lymphocytes # 1.9 K/mcL (0.6-4.6); Lymphocytes % 16.3 %; Mean Corpuscular HGB Conc 33.9 g/dL (31.6-35.5); Mean Corpuscular Hemoglobin 31.4 pg (28.0-33.3); Mean Corpuscular Volume 92.6 fL (83.0-100.0); Mean Platelet Volume 10.3 fL (9.4-12.4); Monocytes # 0.9 K/mcL (0.0-1.3); Monocytes % 7.7 %; Neutrophils # 8.3 K/mcL (1.6-8.9); Platelet Count 213 K/mcL (140-400); Red Blood Count 4.59 M/mcL (4.19-5.50); Red Cell Distribution Width 11.4 % (11.5-14.5); Segmented Neutrophils % 72.2 %; White Blood Count 11.5 K/mcL (4.3-11.1)
[2021-04-28 14:45] LABS: Heparin anti-factor XA UFH 0.31 IU/mL (0.30-0.70)
[2021-04-28 14:46] LABS: INR 1.1; Prothrombin Time 12.2 Seconds (9.4-12.1)
[2021-04-28 14:59] LABS: BUN/Creatinine Ratio 19 (6-26); Blood Urea Nitrogen 24 mg/dL (8-23); Calcium 9.1 mg/dL (8.6-10.3); Carbon Dioxide 26 mEq/L (23-29); Chloride 104 mEq/L (98-107); Glucose 65 mg/dL (70-105); Osmolality,Calculated 284 (280-300); Potassium 4.4 mEq/L (3.5-5.1); Sodium 136 mEq/L (136-145); eGFR For African Americans > 60 (> 60); eGFR For Non-African Americans 58 (> 60)
[2021-04-28] MEDS ORDERED: *HR* Midazolam HCl 2 MG/2 ML VIAL ONE (15:37)
[2021-04-28] MEDS ORDERED: *HR* FentaNYL (PF) 100 MCG/2 ML VIAL ONE (15:37)
[2021-04-28] MEDS ORDERED: Nitroglycerin 1,000 MCG/5 ML VIAL IV ONE (15:38)
[2021-04-28] MEDS ORDERED: *HR* Heparin 10,000 UNIT/10 ML VIAL ONE (15:38)
[2021-04-28] MEDS ORDERED: 0.9 % Sodium Chloride 2,000 ML ONE (15:38)
[2021-04-28] MEDS ORDERED: Heparin 1,000 UNITS/500 mL 500 ML ONE (15:38)
[2021-04-28] MEDS ORDERED: ISOVUE-370 200 ML INFUS..BTL ONE (15:38)
[2021-04-28] MEDS: carvediloL 6.25 MG TABLET PO SCH (18:09)
[2021-04-28] MEDS: MethylPREDNISolone 40 MG/ML VIAL IVP SCH ×2 (18:13→23:57)
[2021-04-28] MEDS ORDERED: Acetaminophen 325 MG TABLET PO PRN (21:31)
[2021-04-28] MEDS ORDERED: *HR* HYDROcodone/Acet 5/325 mg TABLET PO PRN (21:31)
[2021-04-28] MEDS ORDERED: *HR* FentaNYL PATCH 12 MCG PATCH TD SCH (22:00)
[2021-04-29 01:18] LABS: Basophils % 0.3 %; Hematocrit 40.1 % (37.5-50.1); Hemoglobin 13.9 g/dL (12.9-16.9); Immature Granulocytes % 0.5 % (0-4); Lymphocytes # 0.4 K/mcL (0.6-4.6); Lymphocytes % 4.9 %; Mean Corpuscular HGB Conc 34.7 g/dL (31.6-35.5); Mean Corpuscular Volume 92.2 fL (83.0-100.0); Mean Platelet Volume 10.3 fL (9.4-12.4); Monocytes # 0.1 K/mcL (0.0-1.3); Monocytes % 0.7 %; Neutrophils # 8.3 K/mcL (1.6-8.9); Platelet Count 197 K/mcL (140-400); Red Blood Count 4.35 M/mcL (4.19-5.50); Red Cell Distribution Width 11.2 % (11.5-14.5); Segmented Neutrophils % 93.6 %; White Blood Count 8.8 K/mcL (4.3-11.1)
[2021-04-29 01:38] LABS: BUN/Creatinine Ratio 20 (6-26); Blood Urea Nitrogen 26 mg/dL (8-23); Carbon Dioxide 23 mEq/L (23-29); Chloride 104 mEq/L (98-107); Glucose 209 mg/dL (70-105); Magnesium 1.6 mg/dL (1.6-2.6); Osmolality,Calculated 291 (280-300); Phosphorous 3.4 mg/dL (2.7-4.5); Potassium 4.3 mEq/L (3.5-5.1); Sodium 135 mEq/L (136-145); eGFR For African Americans > 60 (> 60); eGFR For Non-African Americans 56 (> 60)
[2021-04-29] MEDS: Ipratropium/Albuterol Neb 3 ML IH SCH ×8 (03:07→23:18)
[2021-04-29] MEDS: Budesonide/Formoterol 160/4.5 1 PUFF INH IH SCH ×2 (07:28→20:00)
[2021-04-29] MEDS: lisinopriL 5 MG TABLET PO SCH (08:41)
[2021-04-29] MEDS: Aspirin 81 MG TAB.CHEW PO SCH (08:41)
[2021-04-29] MEDS: MethylPREDNISolone 40 MG/ML VIAL IVP SCH ×2 (08:41→15:34)
[2021-04-29] MEDS: carvediloL 6.25 MG TABLET PO SCH (08:41)
[2021-04-29] MEDS ORDERED: carvediloL 6.25 MG TABLET PO ONE (08:52)
[2021-04-29] MEDS: *HR* OxyCODONE Immed Rel 5 MG TABLET PO PRN ×2 (11:37→21:51)
[2021-04-29] MEDS ORDERED: carvediloL 6.25 MG TABLET PO SCH (17:00)
[2021-04-29] MEDS: *HR* Heparin 5,000 UNIT/ML VIAL SQ SCH (17:42)
[2021-04-30] MEDS: MethylPREDNISolone 40 MG/ML VIAL IVP SCH ×4 (00:23→23:31)
[2021-04-30] MEDS: Ipratropium/Albuterol Neb 3 ML IH SCH ×5 (03:57→20:52)
[2021-04-30] MEDS: *HR* Heparin 5,000 UNIT/ML VIAL SQ SCH ×2 (05:16→19:17)
[2021-04-30 06:39] LABS: Basophils % 0.1 %; Hematocrit 38.2 % (37.5-50.1); Hemoglobin 13.2 g/dL (12.9-16.9); Immature Granulocytes % 0.5 % (0-4); Lymphocytes # 0.5 K/mcL (0.6-4.6); Lymphocytes % 2.9 %; Mean Corpuscular HGB Conc 34.6 g/dL (31.6-35.5); Mean Corpuscular Hemoglobin 31.7 pg (28.0-33.3); Mean Corpuscular Volume 91.6 fL (83.0-100.0); Mean Platelet Volume 10.7 fL (9.4-12.4); Monocytes # 0.3 K/mcL (0.0-1.3); Monocytes % 1.6 %; Neutrophils # 17.5 K/mcL (1.6-8.9); Platelet Count 209 K/mcL (140-400); Red Blood Count 4.17 M/mcL (4.19-5.50); Red Cell Distribution Width 11.2 % (11.5-14.5); Segmented Neutrophils % 94.9 %
[2021-04-30 06:41] LABS: White Blood Count 18.4 K/mcL (4.3-11.1)
[2021-04-30 07:44] LABS: BUN/Creatinine Ratio 23 (6-26); Blood Urea Nitrogen 32 mg/dL (8-23); Calcium 9.1 mg/dL (8.6-10.3); Carbon Dioxide 24 mEq/L (23-29); Chloride 104 mEq/L (98-107); Glucose 191 mg/dL (70-105); Magnesium 1.7 mg/dL (1.6-2.6); Osmolality,Calculated 294 (280-300); Phosphorous 3.5 mg/dL (2.7-4.5); Potassium 4.7 mEq/L (3.5-5.1); Sodium 136 mEq/L (136-145); eGFR For African Americans > 60 (> 60); eGFR For Non-African Americans 52 (> 60)
[2021-04-30] MEDS: carvediloL 6.25 MG TABLET PO SCH ×2 (08:16→17:21)
[2021-04-30] MEDS: lisinopriL 5 MG TABLET PO SCH (08:16)
[2021-04-30] MEDS: Aspirin 81 MG TAB.CHEW PO SCH (08:16)
[2021-04-30] MEDS: *HR* OxyCODONE Immed Rel 5 MG TABLET PO PRN (08:16)
[2021-04-30] MEDS: Budesonide/Formoterol 160/4.5 1 PUFF INH IH SCH ×2 (08:17→21:01)
[2021-04-30] MEDS: Heparin 25,000UNIT/250ML 1/2NS 25,000 UNIT/250 ML IV.SOLN IVC SCH (19:28)
[2021-05-01] MEDS: Ipratropium/Albuterol Neb 3 ML IH SCH ×4 (00:02→11:34)
[2021-05-01 01:02] LABS: Hemoglobin 13.6 g/dL (12.9-16.9); Monocytes % 3.3 %; Segmented Neutrophils % 92.5 %
[2021-05-01 01:04] LABS: Hematocrit 40.6 % (37.5-50.1); Immature Granulocytes % 0.7 % (0-4); Immature Platelets 8.2 % (1.1-6.1); Lymphocytes # 0.8 K/mcL (0.6-4.6); Lymphocytes % 3.5 %; Mean Corpuscular HGB Conc 33.5 g/dL (31.6-35.5); Mean Corpuscular Hemoglobin 31.1 pg (28.0-33.3); Mean Corpuscular Volume 92.9 fL (83.0-100.0); Mean Platelet Volume 11.1 fL (9.4-12.4); Monocytes # 0.7 K/mcL (0.0-1.3); Platelet Count 191 K/mcL (140-400); Red Blood Count 4.37 M/mcL (4.19-5.50); Red Cell Distribution Width 11.3 % (11.5-14.5); White Blood Count 21.5 K/mcL (4.3-11.1)
[2021-05-01 01:16] LABS: Calcium 9.4 mg/dL (8.6-10.3); Magnesium 1.6 mg/dL (1.6-2.6); Phosphorous 3.3 mg/dL (2.7-4.5); Potassium 4.9 mEq/L (3.5-5.1)
[2021-05-01 01:45] LABS: Neutrophils # 19.9 K/mcL (1.6-8.9)
[2021-05-01 01:46] LABS: Platelet Estimate Normal (Normal)
[2021-05-01] MEDS: *HR* Heparin 5,000 UNIT/ML VIAL SQ SCH (05:19)
[2021-05-01] MEDS: MethylPREDNISolone 40 MG/ML VIAL IVP SCH (07:27)
[2021-05-01] MEDS: lisinopriL 5 MG TABLET PO SCH (07:28)
[2021-05-01] MEDS: Aspirin 81 MG TAB.CHEW PO SCH ×2 (07:28→07:29)
[2021-05-01] MEDS: carvediloL 6.25 MG TABLET PO SCH (07:28)
[2021-05-01] MEDS: Budesonide/Formoterol 160/4.5 1 PUFF INH IH SCH (07:51)
[2021-05-01 11:20] VITALS: BP 132/72; PULSE 71; TEMP 97.3; O2SAT 97
== END 2021-05-01 14:26 | disposition home health service (06) | DRG 280 ==
LOC: 2NNU → 3BNU 04-30 18:32
PROVIDERS: ADMIT Family Medicine; ATTEND Family Medicine

== ENCOUNTER 2021-08-11 17:50 | Observation (INO) ==
[2021-08-11] MEDS ORDERED: Naloxone 0.4 MG/ML INJ IVP PRN (22:54)
[2021-08-11] MEDS ORDERED: Ondansetron ODT 4 MG TAB.RAPDIS SL PRN (22:54)
[2021-08-11] MEDS ORDERED: Acetaminophen 325 MG TABLET PO PRN (22:54)
[2021-08-11] MEDS ORDERED: Melatonin 3 MG TABLET PO PRN (22:54)
[2021-08-11] MEDS ORDERED: *HR* OxyCODONE Immed Rel 5 MG TABLET PO PRN (22:54)
[2021-08-11] MEDS ORDERED: *HR* Dextrose 50 % in Water (Syg) 50 ML SYRINGE IVP PRN (23:20)
[2021-08-11] MEDS ORDERED: D5% in Water 1,000 ML IVC PRN (23:20)
[2021-08-11] MEDS ORDERED: Dextrose Gel 15 GM/37.5 ML TUBE PO PRN ×2 (23:20)
[2021-08-11] MEDS: 0.9 % Sodium Chloride 1,000 ML IVC SCH (23:47)
[2021-08-12 01:11] LABS: Hematocrit 36.8 % (37.5-50.1); Hemoglobin 12.4 g/dL (12.9-16.9); Mean Corpuscular HGB Conc 33.7 g/dL (31.6-35.5); Mean Corpuscular Hemoglobin 31.1 pg (28.0-33.3); Mean Corpuscular Volume 92.2 fL (83.0-100.0); Platelet Count 207 K/mcL (140-400); Red Blood Count 3.99 M/mcL (4.19-5.50); Red Cell Distribution Width 12.3 % (11.5-14.5)
[2021-08-12 01:34] LABS: BUN/Creatinine Ratio 14 (6-26); Blood Urea Nitrogen 18 mg/dL (8-23); Calcium 8.8 mg/dL (8.6-10.3); Carbon Dioxide 23 mEq/L (23-29); Chloride 107 mEq/L (98-107); Chol/HDL Ratio 4.2 (0-4.9); Cholesterol 138 mg/dL (< 200); Glucose 145 mg/dL (70-105); HDL Cholesterol 33 mg/dL (40-59); LDL Cholesterol,Calculated 94 mg/dL (< 100); Magnesium 1.9 mg/dL (1.6-2.6); Osmolality,Calculated 290 (280-300); Potassium 4.2 mEq/L (3.5-5.1); Sodium 138 mEq/L (136-145); Triglycerides 54 mg/dL (< 150); eGFR For African Americans > 60 (> 60); eGFR For Non-African Americans 55 (> 60)
[2021-08-12 01:43] LABS: Estimated Average Glucose 128 mg/dl; Hemoglobin A1C 6.1 %
[2021-08-12] MEDS ORDERED: *HR* Heparin 5,000 UNIT/ML VIAL IVP PRN ×2 (01:46)
[2021-08-12] MEDS ORDERED: *HR* Heparin 5,000 UNIT/ML VIAL IVP ONE (01:46)
[2021-08-12] MEDS: Insulin LISPRO 300 UNITS/3 ML VIAL SUBQ SCH ×4 (01:50→17:31)
[2021-08-12] MEDS ORDERED: Perflutren Lipid Microsphere 1.3 ML in 0.9 % Sodium Chloride 8.7 ML IVP PRN (02:16)
[2021-08-12] MEDS: Heparin 25,000UNIT/250ML 1/2NS 25,000 UNIT/250 ML IV.SOLN IVC SCH (02:26)
[2021-08-12] MEDS: Nicotine 21 MG PATCH.TD24 TD SCH (02:26)
[2021-08-12 03:18] LABS: Adenovirus Not Detected (Not Detect); Bordetella Pertussis Not Detected (Not Detect); Chlamydophila pneumoniae Not Detected (Not Detect); Coronavirus 229E Not Detected (Not Detect); Coronavirus HKU1 Not Detected (Not Detect); Coronavirus NL63 Not Detected (Not Detect); Coronavirus OC43 Not Detected (Not Detect); Human Metapneumovirus Not Detected (Not Detect); Human Rhinovirus/Enterovirus Not Detected (Not Detect); Influenza A Subtype 2009 H1 Not Detected (Not Detect); Influenza B Not Detected (Not Detect); Mycoplasma pneumoniae Not Detected (Not Detect); Parainfluenza Virus 1 Not Detected (Not Detect); Parainfluenza Virus 2 Not Detected (Not Detect); Parainfluenza Virus 3 Not Detected (Not Detect); Parainfluenza Virus 4 Not Detected (Not Detect); Respiratory Syncytial Virus Not Detected (Not Detect); SARS-CoV-2 Not Detected (Not Detect)
[2021-08-12] MEDS: Ipratropium/Albuterol Neb 3 ML IH PRN ×3 (04:23→20:06)
[2021-08-12 06:51] LABS: Hematocrit 36.5 % (37.5-50.1); Hemoglobin 12.3 g/dL (12.9-16.9); Mean Corpuscular HGB Conc 33.7 g/dL (31.6-35.5); Mean Corpuscular Hemoglobin 31.8 pg (28.0-33.3); Mean Corpuscular Volume 94.3 fL (83.0-100.0); Mean Platelet Volume 10.2 fL (9.4-12.4); Platelet Count 178 K/mcL (140-400); Red Blood Count 3.87 M/mcL (4.19-5.50); Red Cell Distribution Width 12.3 % (11.5-14.5); White Blood Count 8.8 K/mcL (4.3-11.1)
[2021-08-12 06:59] LABS: INR 1.2; Prothrombin Time 13.3 Seconds (9.4-12.1)
[2021-08-12 12:35] LABS: Amphetamine Screen,Urine Negative ng/mL (Cutoff=1000); Barbiturate Screen,Urine Negative ng/mL (Cutoff=200); Benzodiazepines Screen,Urine Negative ng/mL (Cutoff=200); Cannabinoid Screen,Urine Negative ng/mL (Cutoff = 50); Cocaine Screen,Urine Negative ng/mL (Cutoff= 300); Opiate Screen,Urine Negative ng/mL (Cutoff=300); Phencyclidine Screen,Urine Negative ng/mL (Cutoff=25)
[2021-08-12] MEDS ORDERED: 0.9 % Sodium Chloride 250 ML IVC ONE (16:21)
[2021-08-12] MEDS ORDERED: Acetaminophen 325 MG TABLET PO PRN (16:22)
[2021-08-12] MEDS: 0.9 % Sodium Chloride 1,000 ML IVC SCH (17:44)
[2021-08-12] MEDS: *HR* HYDROcodone/Acet 5/325 mg TABLET PO PRN (20:24)
[2021-08-13] MEDS: *HR* HYDROcodone/Acet 5/325 mg TABLET PO PRN ×3 (02:16→23:46)
[2021-08-13] MEDS: Nicotine 21 MG PATCH.TD24 TD SCH (02:16)
[2021-08-13 03:06] LABS: Basophils # 0.1 K/mcL (0.0-0.2); Basophils % 0.7 %; Eosinophils # 0.2 K/mcL (0.0-0.6); Eosinophils % 2.6 %; Hematocrit 35.4 % (37.5-50.1); Hemoglobin 11.8 g/dL (12.9-16.9); Immature Granulocytes % 0.3 % (0-4); Lymphocytes # 2.3 K/mcL (0.6-4.6); Lymphocytes % 26.5 %; Mean Corpuscular HGB Conc 33.3 g/dL (31.6-35.5); Mean Corpuscular Hemoglobin 31.1 pg (28.0-33.3); Mean Corpuscular Volume 93.4 fL (83.0-100.0); Mean Platelet Volume 10.5 fL (9.4-12.4); Monocytes # 0.9 K/mcL (0.0-1.3); Monocytes % 9.7 %; Neutrophils # 5.3 K/mcL (1.6-8.9); Platelet Count 196 K/mcL (140-400); Red Blood Count 3.79 M/mcL (4.19-5.50); Red Cell Distribution Width 12.1 % (11.5-14.5); Segmented Neutrophils % 60.2 %; White Blood Count 8.8 K/mcL (4.3-11.1)
[2021-08-13 03:27] LABS: BUN/Creatinine Ratio 14 (6-26); Blood Urea Nitrogen 16 mg/dL (8-23); Calcium 7.2 mg/dL (8.6-10.3); Carbon Dioxide 22 mEq/L (23-29); Chloride 109 mEq/L (98-107); Glucose 74 mg/dL (70-105); Magnesium 1.4 mg/dL (1.6-2.6); Osmolality,Calculated 284 (280-300); Potassium 3.8 mEq/L (3.5-5.1); Sodium 137 mEq/L (136-145); eGFR For African Americans > 60 (> 60); eGFR For Non-African Americans > 60 (> 60)
[2021-08-13] MEDS: Ipratropium/Albuterol Neb 3 ML IH PRN ×3 (05:49→19:52)
[2021-08-13] MEDS: Heparin 25,000UNIT/250ML 1/2NS 25,000 UNIT/250 ML IV.SOLN IVC SCH (08:59)
[2021-08-13] MEDS: Insulin LISPRO 300 UNITS/3 ML VIAL SUBQ SCH ×3 (09:00→17:02)
[2021-08-13] MEDS: carvediloL 6.25 MG TABLET PO SCH (17:05)
[2021-08-14] MEDS: Heparin 25,000UNIT/250ML 1/2NS 25,000 UNIT/250 ML IV.SOLN IVC SCH (02:26)
[2021-08-14 02:40] LABS: Basophils % 0.5 %; Eosinophils # 0.3 K/mcL (0.0-0.6); Eosinophils % 3.9 %; Hematocrit 33.3 % (37.5-50.1); Hemoglobin 11.6 g/dL (12.9-16.9); Immature Granulocytes % 0.3 % (0-4); Lymphocytes # 1.4 K/mcL (0.6-4.6); Lymphocytes % 18.8 %; Mean Corpuscular HGB Conc 34.8 g/dL (31.6-35.5); Mean Corpuscular Hemoglobin 32.5 pg (28.0-33.3); Mean Corpuscular Volume 93.3 fL (83.0-100.0); Mean Platelet Volume 10.8 fL (9.4-12.4); Monocytes # 0.8 K/mcL (0.0-1.3); Monocytes % 10.5 %; Neutrophils # 4.9 K/mcL (1.6-8.9); Platelet Count 176 K/mcL (140-400); Red Blood Count 3.57 M/mcL (4.19-5.50); White Blood Count 7.4 K/mcL (4.3-11.1)
[2021-08-14 02:42] LABS: BUN/Creatinine Ratio 13 (6-26); Blood Urea Nitrogen 14 mg/dL (8-23); Calcium 7.9 mg/dL (8.6-10.3); Carbon Dioxide 22 mEq/L (23-29); Chloride 109 mEq/L (98-107); Glucose 76 mg/dL (70-105); Magnesium 1.5 mg/dL (1.6-2.6); Osmolality,Calculated 283 (280-300); Potassium 3.7 mEq/L (3.5-5.1); Sodium 137 mEq/L (136-145); eGFR For African Americans > 60 (> 60); eGFR For Non-African Americans > 60 (> 60)
[2021-08-14] MEDS: Ipratropium/Albuterol Neb 3 ML IH PRN (03:59)
[2021-08-14] MEDS: Nicotine 21 MG PATCH.TD24 TD SCH (05:22)
[2021-08-14] MEDS: Insulin LISPRO 300 UNITS/3 ML VIAL SUBQ SCH ×2 (07:35→12:18)
[2021-08-14] MEDS: carvediloL 6.25 MG TABLET PO SCH (07:45)
[2021-08-14] MEDS ORDERED: Magnesium Oxide 400 MG TABLET PO SCH (09:00)
[2021-08-14] MEDS ORDERED: lisinopriL 5 MG TABLET PO SCH (09:00)
[2021-08-14 12:11] VITALS: BP 170/84; PULSE 63; TEMP 98; O2SAT 95
== END 2021-08-14 15:33 | disposition home health service (06) ==
LOC: 3NENU → SUATTDRO 21:40
PROVIDERS: ADMIT Family Medicine; ATTEND Internal Medicine